=== PATIENT | female | born 1990 | race Caucasian/White ===

== ENCOUNTER 2017-11-19 05:53 | Inpatient (IN) | payer OTHER ==
[2017-11-19] MEDS ORDERED: MISOPROSTOL 200 MCG TAB PR ×2 (06:30→13:00)
[2017-11-19] MEDS ORDERED: CARBOPROST 250 MCG INJ IM ×2 (06:30→13:00)
[2017-11-19] MEDS ORDERED: OXYTOCIN 30 UNITS/LR 500 ML IV ×2 (06:30→13:00)
[2017-11-19] MEDS ORDERED: METHYLERGONOVINE 0.2 MG INJ IM ×2 (06:30→13:00)
[2017-11-19] MEDS: LACTATED RINGER'S 1,000 ML IV ×2 (07:00→22:21)
[2017-11-19] MEDS ORDERED: CEFAZOLIN 2 GM/50 ML (PMX) 50 ML IVPB (07:00)
[2017-11-19 07:18] LABS: ADD MAN DIFF? NO
[2017-11-19 07:20] LABS: BASOPHILS % 0.2 % (0.0-2.0); EOSINOPHILS % 0.6 % (0.0-7.0); HEMATOCRIT 33.5 % (37.0-47.0); HEMOGLOBIN 11.5 g/dl (12.0-16.0); LYMPHOCYTES # 1.5 10^3/ul (0.8-2.9); LYMPHOCYTES % 23.5 % (15.0-51.0); MEAN CORPUSCULAR HEMOGLOBIN 31.9 pg (29.0-33.0); MEAN CORPUSCULAR HGB CONC 34.3 g/dl (32.0-37.0); MEAN CORPUSCULAR VOLUME 93.1 fl (82.0-101.0); MEAN PLATELET VOLUME 10.1 fl (7.4-10.4); MONOCYTE # 0.4 10^3/ul (0.3-0.9); MONOCYTES % 6.7 % (0.0-11.0); NEUTROPHIL # 4.5 10^3/ul (1.6-7.5); NEUTROPHILS % 68.8 % (39.0-77.0); PLATELET COUNT 175 10^3/UL (140-415); RED CELL DISTRIBUTION WIDTH 12.8 % (11.5-14.5)
[2017-11-19 07:20] LABS: WHITE BLOOD COUNT 6.5 10^3/ul (4.8-10.8)
[2017-11-19 07:41] LABS: INR 0.92; PROTIME 12.4 Sec (11.9-14.9)
[2017-11-19 07:42] LABS: PARTIAL THROMBOPLASTIN TIME 24.3 Sec (25.0-35.0)
[2017-11-19 08:17] LABS: HEPATITIS B SURFACE ANTIGEN NEGATIVE (NEGATIVE)
[2017-11-19] MEDS ORDERED: BUPIVACAINE 0.75%/DEXT (SPINAL) 2 ML INJ (10:02)
[2017-11-19] MEDS ORDERED: FENTAnyl 50 MCG/ML VIAL (10:02)
[2017-11-19] MEDS ORDERED: morphine SULFATE/PF (10 MG/10 ML) INJ (10:02)
[2017-11-19] MEDS ORDERED: PHENYLephrine (100 MCG/ML) 5ML SYG (10:02)
[2017-11-19] MEDS ORDERED: ONDANSETRON 4 MG INJ (10:16)
[2017-11-19] MEDS ORDERED: DEXAMETHASONE 4 MG/ML 1 ML INJ (10:16)
[2017-11-19] MEDS ORDERED: OXYTOCIN 10 UNIT INJ (10:35)
[2017-11-19] MEDS ORDERED: ZOLPIDEM 5 MG TAB PO (12:00)
[2017-11-19] MEDS ORDERED: NALOXONE (0.4 MG/ML) INJ IV (12:00)
[2017-11-19] MEDS ORDERED: DIPHENHYDRAMINE 50 MG INJ IV (12:00)
[2017-11-19] MEDS ORDERED: KETOROLAC 30 MG INJ IV (12:00)
[2017-11-19] MEDS ORDERED: HYDROmorphONE 0.5 MG/0.5 ML SYG IV ×2 (12:00)
[2017-11-19] MEDS ORDERED: ONDANSETRON 4 MG INJ IV (12:00)
[2017-11-19] MEDS ORDERED: DEXTROSE 5%-LR 1,000 ML IV (12:58)
[2017-11-19] MEDS ORDERED: METHYLERGONOVINE 0.2 MG TAB PO (13:00)
[2017-11-19] MEDS ORDERED: LANOLIN 7 GM TUBE TOP (13:00)
[2017-11-19] MEDS: OXYTOCIN 30 UNITS/LR 500 ML IV ×2 (13:46→14:56)
[2017-11-19 17:17] LABS: RAPID PLASMA REAGIN NONREACTIVE (NR)
[2017-11-19] MEDS: SENNA/DOCUSATE NA (8.6MG/50MG) TAB PO (20:46)
[2017-11-20] MEDS: LACTATED RINGER'S 1,000 ML IV ×2 (06:02→14:00)
[2017-11-20 07:01] LABS: ADD MAN DIFF? NO
[2017-11-20 07:04] LABS: BASOPHILS % 0.3 % (0.0-2.0); EOSINOPHILS % 0.3 % (0.0-7.0); HEMATOCRIT 30.6 % (37.0-47.0); HEMOGLOBIN 10.2 g/dl (12.0-16.0); LYMPHOCYTES # 1.7 10^3/ul (0.8-2.9); LYMPHOCYTES % 26.2 % (15.0-51.0); MEAN CORPUSCULAR HEMOGLOBIN 31.4 pg (29.0-33.0); MEAN CORPUSCULAR HGB CONC 33.3 g/dl (32.0-37.0); MEAN CORPUSCULAR VOLUME 94.2 fl (82.0-101.0); MEAN PLATELET VOLUME 10.6 fl (7.4-10.4); MONOCYTE # 0.4 10^3/ul (0.3-0.9); MONOCYTES % 5.9 % (0.0-11.0); NEUTROPHIL # 4.2 10^3/ul (1.6-7.5); PLATELET COUNT 159 10^3/UL (140-415); RED BLOOD COUNT 3.25 10^6/ul (4.20-5.40); RED CELL DISTRIBUTION WIDTH 12.9 % (11.5-14.5)
[2017-11-20 07:04] LABS: WHITE BLOOD COUNT 6.3 10^3/ul (4.8-10.8)
[2017-11-20] MEDS: HYDROCODONE/APAP (5/325) TAB PO ×4 (08:00→19:03)
[2017-11-20] MEDS: SENNA/DOCUSATE NA (8.6MG/50MG) TAB PO ×2 (09:37→21:02)
[2017-11-21] MEDS: HYDROCODONE/APAP (5/325) TAB PO ×3 (05:59→21:29)
[2017-11-21] MEDS: SENNA/DOCUSATE NA (8.6MG/50MG) TAB PO ×2 (08:41→21:26)
[2017-11-22] MEDS: MAGNESIUM HYDROXIDE 30ML CUP PO (05:34)
[2017-11-22] MEDS: HYDROCODONE/APAP (5/325) TAB PO ×2 (05:35→15:09)
[2017-11-22] MEDS: SENNA/DOCUSATE NA (8.6MG/50MG) TAB PO (08:55)
[2017-11-22] MEDS: MEASLES,MUMPS,RUBELLA VACCINE INJ SC* (09:19)
[2017-11-22] MEDS: DIPHTH/TET/ACEL PERTUSS (ADULT) 0.5 ML VIAL IM* (10:53)
== END 2017-11-22 16:05 | disposition home or self-care (01) | DRG 766 ==
LOC: L-D 05:53 → PP1 14:10
PROVIDERS: Obstetrics & Gynecology
PROC: 10D00Z1 Extraction of Products of Conception, Low, Open Approach (ICD-10-PCS; principal; 2017-11-19)
PROC: 0UT70ZZ Resection of Bilateral Fallopian Tubes, Open Approach (ICD-10-PCS; 2017-11-19)
DX: O34.211 Maternal care for low transverse scar from previous cesarean delivery (principal); Z3A.39 39 weeks gestation of pregnancy; Z37.0 Single live birth; Z30.2 Encounter for sterilization
CPT/HCPCS: 85025; 85610; 85730; 86592; 86850; 86900; 86901; 87340; 88302; 90715; 99464